=== PATIENT | male | born 1960 | race Two or more races ===

== ENCOUNTER 2023-12-24 11:15 | Outpatient (OUT) | payer OTHER, SELFPAY ==
--- NOTE | 2023-12-24 11:24 | XR_ITS ---
The [address] [address] Patient Name: JULIUS HOWE MRN: [id number] date: 1960 Sex: M Assigned Patient Location: RAD Current Patient Location: RAD Accession/Order Number: [id number] Exam Date: 12/24/2023 11:30 Report Date: 12/24/2023 11:48 At the request of: WILTON LU Procedure: XR elbow LT min 3V PROCEDURE: XR elbow LT min 3V, XR forearm LT 2V COMPARISON: None. HISTORY: Left Forearm Contusion , Left Elbow Contusion FINDINGS: BONES:No fracture, acute abnormality, or significant arthropathy. SOFT TISSUES:Negative. No visible soft tissue swelling. EFFUSION:None visible. OTHER: Negative. XR/XR elbow LT min 3V IMPRESSION: No acute fracture of the elbow or forearm Electronically authenticated by: ALIE OATES Date: 12/24/2023 11:48
--- NOTE | 2023-12-24 11:24 | XR_ITS ---
The [address] [address] Patient Name: JULIUS HOWE MRN: [id number] date: 1960 Sex: M Assigned Patient Location: RAD Current Patient Location: RAD Accession/Order Number: [id number] Exam Date: 12/24/2023 11:30 Report Date: 12/24/2023 11:48 At the request of: WILTON LU Procedure: XR forearm LT 2V PROCEDURE: XR elbow LT min 3V, XR forearm LT 2V COMPARISON: None. HISTORY: Left Forearm Contusion , Left Elbow Contusion FINDINGS: BONES:No fracture, acute abnormality, or significant arthropathy. SOFT TISSUES:Negative. No visible soft tissue swelling. EFFUSION:None visible. OTHER: Negative. XR/XR forearm LT 2V IMPRESSION: No acute fracture of the elbow or forearm Electronically authenticated by: ALIE OATES Date: 12/24/2023 11:48
== END 2023-12-24 11:16 | disposition home or self-care (01) ==
LOC: RAD 11:19
PROVIDERS: PCP Family Medicine; Visit Provider Nurse Practitioner Family
DX: S50.12XA Contusion of left forearm, initial encounter (principal); S50.02XA Contusion of left elbow, initial encounter
CPT/HCPCS: 73080; 73090